=== PATIENT | male | born 1930 | race Caucasian/White ===

== ENCOUNTER 2017-09-15 13:36 | Emergency (ER) | payer OTHER ==
[~2017-09-15] VITALS: Ht 180.3 cm; Wt 93.3 kg
[~2017-09-15 13:36] MED LIST: ASPIR 8181 M1 PO; BETAMETHASONE D45 GM TP; CIPRO500 MG PO; CYANOCOBALAM1000 MCG PO; DOCUSATE SODIU100 MG PO; ENDOCET 5-3251 EACH PO; FINASTERIDE5 MG PO; FISH OIL300 MG PO; FISH OIL500 MG PO; FLOMAX0.4 MG PO; GLUCOPHAGE500 MG PO; JANUVIA100 MG PO; LO-DOSE ASPIRIN81 M1 PO; LOFIBRA,TRIGLI160 MG PO; LOPRESSOR50 MG PO; METFORMIN HCL500 M1 PO; METOPROLOL PO; PLAVIX75 MG PO; PROSCAR5 MG PO; TAMSULOSIN HCL0.4 MG PO; VITAMIN B-121000 MCG PO; ZESTRIL40 MG PO; ZOCOR40 MG PO
[2017-09-15 14:56] LABS: HEMATOCRIT 35.9 % (38.0-50.0); MCH 31.3 PG (29.0-34.0); MCHC 33.4 G/DL (30.0-36.0); MCV 93.5 FL (86-99); PLATELET COUNT 177 K/uL (156-360); RBC DIS.WIDTH-CV 13.9 % (11.8-14.6); RBC DIS.WIDTH-SD 46.5 % (39-53); RED BLOOD COUNT 3.84 M/uL (4.00-5.50); WHITE BLOOD COUNT 3.6 K/uL (4.1-10.2)
[2017-09-15 15:04] LABS: CHLORIDE 106 mEq/L (99-109); POTASSIUM 4.3 mEq/L (3.7-5.4); SODIUM 143 mEq/L (136-147)
[2017-09-15 15:06] LABS: GLUCOSE 197 mg/dL (70-99); TOTAL PROTEIN 7.4 g/dL (6.4-8.3)
[2017-09-15 15:08] LABS: TOTAL BILIRUBIN 0.4 mg/dL (0.0-1.0)
[2017-09-15 15:09] LABS: ALKALINE PHOSPHATASE 32 IU/L (3-129)
[2017-09-15 15:10] LABS: CREATININE 1.3 mg/dL (0.6-1.3); GFR ESTIMATE (CALCULATED) 55 mL/min/ (58.99-99999)
[2017-09-15 15:11] LABS: AST (GOT) 10 IU/L (2-34); UREA NITROGEN (BUN) 31 mg/dL (9-23)
[2017-09-15 15:13] LABS: ALT (GPT) 10 IU/L (3-49); CREATINE KINASE 68 IU/L (1-294)
[2017-09-15 15:16] LABS: TROP-I INTERPRETATION NEGATIVE; TROPONIN-I 0.01 ng/mL (0.0-0.30)
[2017-09-15 15:21] LABS: APPEARANCE CLOUDY ((CLEAR)); BILIRUBIN NEGATIVE; BLOOD LARGE; COLOR AMBER ((YELLOW)); GLUCOSE (STRIP) 50; KETONES NEGATIVE; LEUKOCYTES NEGATIVE; NITRITE NEGATIVE; PROTEIN (STRIP) 100; UROBILINOGEN 0.2 MG/DL (0.2-1.0)
[2017-09-15 15:49] LABS: BACTERIA 2+ /HPF; EPITHELIAL CELLS RARE /HPF; MUCUS NONE SEEN /LPF; RED BLOOD CELLS 20-30 /HPF (0-5); WHITE BLOOD CELLS NONE SEEN /HPF (0-5)
[2017-09-15 15:50] LABS: AMORPHOUS URATES CRYSTALS 1+
[2017-09-15 16:40] VITALS: BP 164/84
== END 2017-09-15 17:10 | disposition home or self-care (01) ==
LOC: EME 13:36
PROVIDERS: Emergency Medicine
DX: I63.9 Cerebral infarction, unspecified (principal); R31.9 Hematuria, unspecified; I70.0 Atherosclerosis of aorta; R94.31 Abnormal electrocardiogram [ECG] [EKG]; E11.9 Type 2 diabetes mellitus without complications; I10 Essential (primary) hypertension; E78.5 Hyperlipidemia, unspecified; I25.2 Old myocardial infarction; Z79.84 Long term (current) use of oral hypoglycemic drugs; Z87.891 Personal history of nicotine dependence; Z95.9 Presence of cardiac and vascular implant and graft, unspecified; Z88.8 Allergy status to other drugs, medicaments and biological substances
CPT/HCPCS: 71045; 80053; 81003; 82550; 82948; 83874 90; 84484; 85027; 93005; 99281; 99284; J7030